=== PATIENT | female | born 2005 | race American Indian/Alaskan Native ===

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

== ENCOUNTER 2024-04-05 21:48 | Emergency (ER) | payer OTHER, SELFPAY ==
[2024-04-05 21:50] VITALS: BP 126/78; PULSE 101; RESP 16; TEMP 36.9; O2SAT 99; BMI 20.5
--- NOTE | 2024-04-05 22:02 | DI.RAD.S_ITS ---
PROCEDURE: XR KNEE LT 1TO2V INDICATIONS: L knee pain after fall TECHNIQUE: 3 views of the knee were acquired. COMPARISON: None. FINDINGS: Bones: Mild cortical irregularity is seen projecting over the central eminence of the proximal tibia. Soft tissues: Moderate lipohemarthrosis. IMPRESSION: 1. Suspected minimally displaced fracture of the central tibial plateau likely involving the anterior cruciate ligament insertion. 2. Moderate lipohemarthrosis. Approved by: Jordan Zheng M.D. on 04/05/2024 at 22:29
[2024-04-05 22:04] VITALS: PULSE 100
--- NOTE | 2024-04-05 22:14 | ED_ITS ---
HPI - Extremity Injury (Lower) General Chief Complaint: Extremity Injury, Lower Stated Complaint: left knee injury Time Seen by Provider: 04/05/24 21:52 Source: patient Mode of arrival: Family Vehicle History of Present Illness HPI Narrative: Patient was otherwise healthy 18-year-old female here for evaluation of a left knee injury. Patient states that while she was playing basketball she fell and landed on her left knee. States she felt a ?crack? has been unable to put weight on it since then. No other injuries from the event. Has not taken anything for the symptoms prior to arrival. No prior injuries. Related Data Home Medications Medication Instructions Recorded Confirmed etonogestrel 68 mg subdermal subdermal 06/12/23 06/12/23 implant (Nexplanon) Previous Rx's Medication Instructions Recorded tramadol 50 mg tablet 50 mg PO Q8H PRN pain #10 tabs 04/05/24 Allergies Allergy/AdvReac Type Severity Reaction Status Date / Time Penicillins AdvReac Intermediate Hives Verified 07/10/23 10:06 Review of Systems Musculoskeletal Musculoskeletal: Reports system reviewed and no additional complaints, except as documented Integumentary/Breasts Skin/Breast: Reports system reviewed and no additional complaints, except as documented Patient History Social History Smoking Status: Never smoker Smoking Status: Never smoker alcohol intake frequency: holidays/special occasions only Substance Use Type: does not use Exam Initial Vital Signs Initial Vital Signs: Vital Signs Temperature 98.4 F 04/05/24 21:50 Pulse Rate 101 H 04/05/24 21:50 Respiratory Rate 16 04/05/24 21:50 Blood Pressure 126/78 04/05/24 21:50 Pulse Oximetry 99 04/05/24 21:50 Oxygen Delivery Method Room Air 04/05/24 21:50 Skin General: no rashes or lesions noted Neuro Sensory Exam: no sensory deficits noted Extrem Other: Patient was able to do a straight leg raise. Hamstrings appear to be intact. Quadriceps tendon and patellar tendon appear to be intact. Patient has discomfort with any type of flexion extension. Course Orders Ordered: ED Orders 04/05/24 22:02 XR knee LT 1to2V Stat 04/05/24 22:37 CT LE LT wo con Stat 04/05/24 22:46 Consult to Orthopedic Surgery Stat Discontinued Medications Hydrocodone Bitart/Acetaminophen (Hydrocodone/Acet 5/325 Tablet) 1 tab PO NOW ONE Stop: 04/05/24 22:17 Last Admin: 04/05/24 22:21 Dose: 1 tab Documented By: NAY Tramadol HCl (Tramadol 50 Mg Prepack) 1 bottle MISC DIRECTED ONE Stop: 04/05/24 23:00 Vital Signs Vital signs: Vital Signs - 8 hr 04/05/24 21:50 04/05/24 22:04 Temperature 98.4 F Pulse Rate 101 H Pulse Rate [Left Dorsalis Pedis] 100 H Respiratory Rate 16 Blood Pressure 126/78 Pulse Oximetry 99 Oxygen Delivery Method Room Air MDM - Extremity Injury (Lower) Imaging Data Extremity x-ray #1: Radiologist's Impression: PROCEDURE: XR KNEE LT 1TO2V INDICATIONS: L knee pain after fall TECHNIQUE: 3 views of the knee were acquired. COMPARISON: None. FINDINGS: Bones: Mild cortical irregularity is seen projecting over the central eminence of the proximal tibia. Soft tissues: Moderate lipohemarthrosis. IMPRESSION: 1. Suspected minimally displaced fracture of the central tibial plateau likely involving the anterior cruciate ligament insertion. 2. Moderate lipohemarthrosis. CT LE: Radiologist's Impression: PROCEDURE: CT LE LT W CON INDICATIONS: Eval for tibial spine versus tibial plateau fracture TECHNIQUE: Noncontrast 1-1.5 mm axial sections acquired from the mid-patella to the proximal tibia, with coronal and sagittal reformats. For radiation dose reduction, the followi ng was used: automated exposure control, adjustment of mA and/or kV according to patient size. COMPARISON: [facility], [place], XR KNEE LT 1TO2V, 04/05/2024, 22:01. FINDINGS: Image quality: Excellent. Bones: Mildly displaced and comminuted avulsion type fracture of the central eminence of the proximal tibia involving the anterior cruciate ligament insertion. The fracture may involve the lateral most portion of the medial tibial plateau articular surface, although the articular surfaces are otherwise spared. The remaining visualized osseous structures are intact. Soft tissues: Moderate to large lipohemarthrosis. The articular cartilages, ligaments, tendons, and menisci are not well evaluated with CT. No significant medial popliteal cyst. The visualized musculature is normal in bulk. IMPRESSION: Comminuted, mildly displaced fracture of the central eminence of the tibia involving the anterior cruciate ligament insertion. Moderate to large lipohemarthrosis. MDM Narrative Medical decision making narrative: X-ray was concerning for tibial plateau/tibial spine fracture/ACL injury. Discussed the case with Dr. Amin on-call for Orthopedic surgery who recommended CT scan, knee immobilizer, crutches and follow up with Orthopedic surgery. Subsequent CT scan does show what appears to be a tibial spine fracture. I discussed this with the patient and parents were at bedside. We discussed crutches and follow up with Orthopedic surgery. Pain medication provided. They were given return precautions. They expressed understanding agreement. Discharge Plan Departure Patient Disposition: Home Clinical Impression: Closed fracture of tibial spine Instructions: How to Use Crutches, How to Use a Knee Immobilizer Activity Restrictions/Additional Instructions: You should be nonweightbearing on your left leg. Use the crutches in the knee immobilizer. Contact the orthopedic providers at the number provided below for a follow-up this week. Return to the emergency department for new symptoms. Prescriptions: New tramadol 50 mg tablet 50 mg PO Q8H PRN (Reason: pain) Qty: 10 0RF No Action Nexplanon 68 mg implant subdermal Referrals: Manan Rubio PA-C [Primary Care Provider] - Charlie Amin MD [Physician] - Stand Alone Forms: Patient Portal/API, Work Release Note
[2024-04-05] MEDS: HYDROCODONE/ACET 5/325 TABLET 1 TAB PO (22:21)
--- NOTE | 2024-04-05 22:37 | DI.CT.S_ITS ---
PROCEDURE: CT LE LT W CON INDICATIONS: Eval for tibial spine versus tibial plateau fracture TECHNIQUE: Noncontrast 1-1.5 mm axial sections acquired from the mid-patella to the proximal tibia, with coronal and sagittal reformats. For radiation dose reduction, the following was used: automated exposure control, adjustment of mA and/or kV according to patient size. COMPARISON: [facility], [place], XR KNEE LT 1TO2V, 04/05/2024, 22:01. FINDINGS: Image quality: Excellent. Bones: Mildly displaced and comminuted avulsion type fracture of the central eminence of the proximal tibia involving the anterior cruciate ligament insertion. The fracture may involve the lateral most portion of the medial tibial plateau articular surface, although the articular surfaces are otherwise spared. The remaining visualized osseous structures are intact. Soft tissues: Moderate to large lipohemarthrosis. The articular cartilages, ligaments, tendons, and menisci are not well evaluated with CT. No significant medial popliteal cyst. The visualized musculature is normal in bulk. IMPRESSION: Comminuted, mildly displaced fracture of the central eminence of the tibia involving the anterior cruciate ligament insertion. Moderate to large lipohemarthrosis. Approved by: Jordan Zheng M.D. on 04/05/2024 at 23:08
[2024-04-05] MEDS: TRAMADOL 50 MG PREPACK 1 BOTTLE MISC (23:28)
== END 2024-04-05 23:45 | disposition home or self-care (01) ==
PROVIDERS: Emergency Provider Emergency Medicine; PCP Physician Assistant
DX: S82.142A Displaced bicondylar fracture of left tibia, initial encounter for closed fracture (principal); W18.30XA Fall on same level, unspecified, initial encounter; Y93.67 Activity, basketball
CPT/HCPCS: 73560; 73700; 99284

== ENCOUNTER → 2024-04-07 17:14 | Outpatient (CLI) | payer OTHER, SELFPAY ==
--- NOTE | 2024-04-07 17:16 | DI.MRI.S_ITS ---
PROCEDURE: MR KNEE LT WO CON INDICATIONS: RUPTURE OF ANTERIOR CRUCIATE LIGAMENT LT KNEE TECHNIQUE: Noncontrast sagittal PD fast spin echo and T2 fast spin echo with fat saturation, sagittal 3-D FLASH with fat saturation; coronal T1 spin echo and PD fast spin echo with fat saturation, and axial PD fast spin echo with fat saturation through the knee. COMPARISON: [facility], CT, CT LE LT WO CON, 04/05/2024, 22:51. FINDINGS: Image quality: Excellent. Menisci: The medial and lateral menisci demonstrate normal morphology and internal signal. The meniscal root ligaments appear intact. Cruciate ligaments: The anterior cruciate ligament appears thickened near its distal insertion. No ACL rupture. The PCL is intact. Medial structures: The medial collateral ligament appears mildly thickened with surrounding soft tissue edema. Visualized portions of the pes anserinus tendons appear normal. No abnormal bursal fluid. Lateral structures: The lateral collateral ligament, long and short heads of the biceps femoris tendon appear intact. The popliteus tendon appears normal. Iliotibial band appears normal. Anterior structures: The quadriceps and patellar tendons appear intact. Patellar alignment is normal. No femoral trochlear dysplasia or ventral trochlear prominence. No edema in the infrapatellar fat pad. Bones and cartilage: Acute comminuted avulsion injury involving base of tibial spine at ACL insertion is seen with slight superior displacement of the fractured fragment and extensive surrounding edema. Marrow edema is also noted involving lateral femoral condyle weight-bearing portion without definite fracture line. Mild marrow edema involving posterior aspect of proximal tibia extending to lateral aspect of posterior tibial plateau without discrete fracture line. The cartilage of the medial and lateral femorotibial compartments, as well as the patellofemoral compartment, appears normal in thickness. Joint space: There is large knee joint fluid. No Enciso's cyst. Normal appearing synovial plicae are incidentally noted. IMPRESSION: 1. Acute comminuted avulsion injury involving base of tibial spine at ACL insertion with surrounding marrow edema. Bony contusion involving lateral femoral condyle weight-bearing portion and posterior and lateral aspect of proximal tibia. No other fracture or dislocation. Articulating cartilage is intact. 2. Moderate to large joint effusion, no loose bodies. 3. Sprain/low-grade partial-thickness tear involving distal ACL at its anterior tibial insertion without ACL rupture. The PCL is intact. 4. Low-grade MCL sprain. 5. No evidence of focal meniscal tear. Dictated by: Kuldeep Lea M.D. on 04/08/2024 at 13:33 Approved by: Kuldeep Lea M.D. on 04/08/2024 at 13:37
== END ==
LOC: MRI 17:15
PROVIDERS: PCP Physician Assistant; Referring Provider Orthopaedic Surgery; Visit Provider Orthopaedic Surgery
DX: S83.512A Sprain of anterior cruciate ligament of left knee, initial encounter (principal); S83.412A Sprain of medial collateral ligament of left knee, initial encounter; S80.02XA Contusion of left knee, initial encounter; M25.462 Effusion, left knee
CPT/HCPCS: 73721

== ENCOUNTER 2024-08-04 17:45 | Emergency (ER) | payer OTHER, SELFPAY ==
[2024-08-04 17:50] VITALS: BP 103/57; PULSE 75; RESP 18; TEMP 36.9; O2SAT 98; BMI 20.5
[2024-08-04 19:04] LABS: Add Manual Diff / Slide Review NO; Basophils Absolute Auto 0 /uL (0-100); Basophils Percent Auto 0.5 % (0-2); Eosinophils Absolute Auto 100 /uL (0-450); Eosinophils Percent Auto 0.9 % (2-4); Hematocrit 41.3 % (36-46); Hemoglobin 13.8 g/dL (12.0-16.0); Lymphocytes Absolute Auto 1900 /uL (1100-4500); Lymphocytes Percent Auto 27.5 % (25-40); Mean Corpuscular HGB Conc 33.5 % (30-36); Mean Corpuscular Volume 92.6 fL (80-100); Monocytes Absolute Auto 300 /uL (0-900); Monocytes Percent Auto 4.7 % (3-14); Neutrophils Absolute Auto 4600 /uL (1500-7000); Neutrophils Percent Auto 66.4 % (50-75); Platelet Count 218 X10^3/uL (150-400); Red Blood Cell Count 4.46 X10^6/uL (4.0-5.2); Red Cell Distribution Width 12.8 % (11.6-14.8)
[2024-08-04 19:17] LABS: Alanine Aminotransferase 16 IU/L (<35); Albumin 5.1 g/dL (3.5-5.0); Albumin Globulin Ratio 1.8 (1.0-2.8); Alkaline Phosphatase 75 U/L (38-126); Aspartate Aminotransferase 29 IU/L (14-36); BUN Creatinine Ratio 10.1 (6-22); Bilirubin Total 0.5 mg/dL (0.2-1.3); Blood Urea Nitrogen 8 mg/dL (7-17); Calcium 9.3 mg/dL (8.4-10.2); Carbon Dioxide 26 mmol/L (22-32); Chloride 105 mmol/L (98-107); Estimated Glomerular Filt Rate > 60 mL/min (>60); Globulin 2.9 g/dL (1.7-4.1); Glucose 124 mg/dL (70-100); HEMOLYSIS 16 (0-50); Lipase 58 U/L (23-300); Potassium 3.7 mmol/L (3.4-5.1); Sodium 140 mmol/L (137-145)
[2024-08-04 23:04] VITALS: BP 111/71; PULSE 72; RESP 19; O2SAT 99
[2024-08-04 23:19] VITALS: BP 106/61; PULSE 88; O2SAT 100
[2024-08-04] MEDS: ONDANSETRON 4 MG/2 ML INJ IV (23:28)
[2024-08-04 23:30] VITALS: BP 99/57; PULSE 71; O2SAT 100
[2024-08-05] VITALS (8 sets, daily range): BP systolic 94–106; BP diastolic 56–69; PULSE 64–94; RESP 18; O2SAT 98–100
--- NOTE | 2024-08-05 00:43 | ED.ABDPAIN ---
HPI - Abdominal Pain General Chief Complaint: Abdominal Pain Stated Complaint: vomiting x30 days, sent by PCP Time Seen by Provider: 08/05/24 00:02 Source: patient Mode of arrival: Ambulatory History of Present Illness HPI narrative: 19-year-old female without history of prior abdominopelvic surgeries, has cutaneous control method, no periods for a number of months, with ongoing 30 days duration abdominal pain, sometimes upper, sometimes lower, not necessarily right-sided or left-sided, not associated with bowel movements, not relieved or worsened with bowel movements, sometimes worsened after foods. Intermittnet nonbloody emesis. Saw a [facility] clinic provider yesterday who did labs and gave Rx ODT-ondansetron, was called back for concern about elevated WBC lab result, advised to go to ED. No established diagnosis. Not seen by any GI specialist. No upper or lower endoscopies. No gynecological problems known. Has hormone implant, last period a few months ago, no recent vaginal bleeding or spotting. No family history of inflammatory bowel problems. No history of constipation problems known. No change in diet. Denies fevers or chills. No diarrhea, change in stool caliber, black or red stools. No dysuria or frequency of urination. No vaginal discharge or pelvic infections known. Related Data Home Medications Medication Instructions Recorded Confirmed etonogestrel 68 mg subdermal subdermal 06/12/23 08/03/24 implant (Nexplanon) Previous Rx's Medication Instructions Recorded ondansetron HCl 4 mg tablet 4 mg PO Q8H PRN nausea and 08/03/24 vomiting #14 tabs Allergies Allergy/AdvReac Type Severity Reaction Status Date / Time Penicillins AdvReac Intermediate Hives Verified 08/03/24 12:08 Patient History Social History Smoking Status: Current every day smoker Smoking Status: Current every day smoker tobacco type: vaping alcohol intake frequency: holidays/special occasions only Exam Narrative Exam Narrative: GENERAL: Well-developed patient, in mild distress. HEAD: Atraumatic. Normocephalic. EYES: Pupils equal round and reactive. Extraocular motions intact. No scleral icterus. No injection or drainage. ENT: Nose without bleeding, purulent drainage. Throat without erythema, tonsillar hypertrophy or exudate. Airway patent. NECK: Trachea midline. Non tender CARDIOVASCULAR: Regular rate and rhythm without murmurs, gallops, or rubs. RESPIRATORY: Clear to auscultation. Breath sounds equal bilaterally. No wheezes, rales, or rhonchi. GASTROINTESTINAL: Abdomen soft, non-tender, nondistended. Some tenderness to right lower quadrant and right middle quadrant, not particularly tender right upper quadrant. No tenderness periumbilical or epigastrium or left-sided. Normal bowel tones without rushes or tinkles. Leg lift on the right side is not seem to make her pain any worse. EXTREMITIES: No edema or joint tenderness. BACK: Nontender without deformity or crepitance. No flank tenderness. NEURO: AOx3. Motor functions grossly nonfocal SKIN: No rash or erythema of visible areas Initial Vital Signs Initial Vital Signs: Vital Signs Temperature 98.4 F 08/04/24 17:50 Pulse Rate 75 08/04/24 17:50 Respiratory Rate 18 08/04/24 17:50 Blood Pressure 103/57 L 08/04/24 17:50 Pulse Oximetry 98 08/04/24 17:50 Oxygen Delivery Method Room Air 08/04/24 17:50 Course Orders Ordered: Discontinued Medications Sodium Chloride (Normal Saline 0.9%) 1,000 mls @ 1,000 mls/hr IV BOLUS ONE Stop: 08/05/24 02:19 Last Infusion: 08/05/24 02:16 Dose: Infused Documented By: Infusion: 08/05/24 02:06 Dose: 0 mls/hr Documented By: Admin: 08/05/24 01:29 Dose: 1,000 mls/hr Documented By: Ondansetron HCl (Ondansetron 4 Mg/2 Ml Inj) 4 mg IV NOW PRN PRN Reason: Nausea And Vomiting Last Admin: 08/04/24 23:28 Dose: 4 mg Documented By: MATTEO Ondansetron HCl (Ondansetron 4 Mg Odt) 4 mg PO NOW PRN PRN Reason: Nausea And Vomiting Ondansetron HCl (Ondansetron 4 Mg/2 Ml Inj) 4 mg IV NOW ONE Stop: 08/05/24 01:21 Last Admin: 08/05/24 01:29 Dose: 4 mg Documented By: Vital Signs Vital signs: Vital Signs - 8 hr 08/04/24 23:04 08/04/24 23:19 08/04/24 23:19 Pulse Rate 72 88 Respiratory Rate 19 Blood Pressure 111/71 106/61 Pulse Oximetry 99 100 Oxygen Delivery Method Room Air 08/04/24 23:30 08/04/24 23:30 08/05/24 00:00 Pulse Rate 71 Respiratory Rate Blood Pressure 99/57 L 99/56 L Pulse Oximetry 100 Oxygen Delivery Method 08/05/24 00:00 08/05/24 00:30 08/05/24 00:30 Pulse Rate 94 H 69 Respiratory Rate Blood Pressure 97/58 L Pulse Oximetry 99 99 Oxygen Delivery Method 08/05/24 01:00 08/05/24 01:00 08/05/24 01:30 Pulse Rate 71 64 Respiratory Rate Blood Pressure 94/65 Pulse Oximetry 98 98 Oxygen Delivery Method 08/05/24 01:30 08/05/24 02:00 08/05/24 02:00 Pulse Rate 64 Respiratory Rate 18 Blood Pressure 95/69 100/61 Pulse Oximetry 100 Oxygen Delivery Method 08/05/24 02:48 08/05/24 02:48 Pulse Rate 82 Respiratory Rate Blood Pressure 102/59 L Pulse Oximetry 99 Oxygen Delivery Method Room Air MDM - Abdominal Pain Lab Data Attestation: I reviewed the patient's lab results. Lab results narrative: White blood cell count 7000, hemoglobin 13.8, platelets adequate. Basic metabolic panel unremarkable. Liver functions lipase normal. Urine test negative. Urine dip negative. 08/04/24 18:57 08/04/24 18:57 Labs: Lab Results 08/04/24 Range/Units 18:57 WBC 7.0 (4.5-11.0) X10^3/uL RBC 4.46 (4.0-5.2) X10^6/uL Hgb 13.8 (12.0-16.0) g/dL Hct 41.3 (36-46) % MCV 92.6 (80-100) fL MCH 31.0 (26-34) PG MCHC 33.5 (30-36) % RDW 12.8 (11.6-14.8) % Plt Count 218 (150-400) X10^3/uL Neut % (Auto) 66.4 (50-75) % Lymph % (Auto) 27.5 (25-40) % [facility] % (Auto) 4.7 (3-14) % Eos % (Auto) 0.9 L (2-4) % Baso % (Auto) 0.5 (0-2) % Neut # (Auto) 4600 (4161-5414) /uL Lymph # (Auto) 1900 (4378-5779) /uL [facility] # (Auto) 300 (0-900) /uL Eos # (Auto) 100 (0-450) /uL Baso # (Auto) 0 (0-100) /uL Sodium 140 (137-145) mmol/L Potassium 3.7 (3.4-5.1) mmol/L Chloride 105 (98-107) mmol/L Carbon Dioxide 26 (22-32) mmol/L BUN 8 (7-17) mg/dL Creatinine 0.79 (0.52-1.04) mg/dL Estimated GFR > 60 (>60) mL/min BUN/Creatinine Ratio 10.1 (6-22) Glucose 124 H (70-100) mg/dL Calcium 9.3 (8.4-10.2) mg/dL Total Bilirubin 0.5 (0.2-1.3) mg/dL AST 29 (14-36) IU/L ALT 16 (<35) IU/L Alkaline Phosphatase 75 (38-126) U/L Total Protein 8.0 (6.3-8.2) g/dL Albumin 5.1 H (3.5-5.0) g/dL Globulin 2.9 (1.7-4.1) g/dL Albumin/Globulin Ratio 1.8 (1.0-2.8) Lipase 58 (23-300) U/L Point of care testing: Point of Care Testing Test Results Negative Urine Dip Bedside Urine Glucose Negative Bedside Urine Bilirubin - Negative Bedside Urine Ketone - Negative Urine Specific [place] 1.020 Bedside Urine Occult Blood - Negative Bedside Urine pH 6.0 Bedside Urine Protein - Negative Bedside Urine Urobilinogen - Negative Bedside Urine Nitrite - Negative Bedside Urine Leukocytes - Negative Esterase MDM Narrative Medical decision making narrative: 19-year-old female with ongoing abdominal pain for this last 1 month, worse last couple of days, recurrent episodes of nausea or vomiting today, unable to keep anything down, increasing generalized abdominal pain. On exam seems to have right middle quadrant and right lower quadrant area discomfort on palpation. No guarding or rebound tenderness. Afebrile, sirs screen negative. Screening labs unremarkable, no white blood cell count elevation, test negative, urine dip negative. Given tenderness right-sided would consider imaging, CT abdomen and pelvis ordered. Father and patient agreeable. Keep NPO for now. She declines pain medications for now. DDx right sided tenderness one month consider constipation, delivery architect etiology, gallbladder, PUD, hepatitis, ureteral colic, right renal pathology, colitis, diverticulitis, bowel obstruction, musculosketelal, other. CT abdomen and pelvis with IV contrast. Impressions: ?No evidence of colitis, diverticulitis, bowel obstruction, obstructive uropathy or acute appendicitis. Large volume of stool within the colon compatible with constipation. Prominent uterine vessels which can be seen in the setting of pelvic congestion syndrome.? See radiology report Copy of report shared with family, trial of [id number] MiraLax. Consider follow up with Gynecology to address possible pelvic congestion syndrome, though suspect given one month duration and CT findings and lack of fever or leukocytosis that constipation is likely cause of her symptoms. Home with father. Return precautions discussed. Discharge Plan Departure Patient Disposition: Home Clinical Impression: Abdominal pain, Constipation Activity Restrictions/Additional Instructions: Ms Norman, Intermittent abdominal pain for this month, seen at local clinic with labs that were sent, increased white blood cell count reported, here for further evaluation. Screening labs here were reassuring, test negative, white blood cell count not elevated here. However there did seem to be some tenderness on the right lower and mid quadrant abdominal exam. We did pursue advanced imaging of the abdomen. CT scan abdomen and pelvis was performed, no acute changes were noted, however there was significant colonic (large intestine) stool noted without bowel obstruction changes. There was also some increased flow to the pelvic organs and radiology concerned that there could be some pelvic congestion syndrome. The migratory in persisting nature of your abdominal pain is consistent with constipation if that is the only process going on for now. Unclear if pelvic congestion syndrome would fit in with your current symptoms though you can discuss this with your regular provider in follow up. Trial of [id number] laxative advised, like MiraLax or magnesium citrate, non prescription. This will likely give you loose stools but if you can stay well hydrated and keep treating hopefully you can debulk the constipation and relieve your discomfort, if it is due to hard stool constipation changes. Consider recheck in the next 2-3 days with your regular doctor after trial of liquid laxative medication. Return earlier to this/nearest emergency department for any change worsening symptoms or any concerns prior. Thank you for allowing our team to evaluate you today. Prescriptions: No Action Nexplanon 68 mg implant subdermal ondansetron HCl 4 mg tablet 4 mg PO Q8H PRN (Reason: nausea and vomiting) Qty: 14 0RF Referrals: Miscellaneous,Doctor, MD [Primary Care Provider] - Stand Alone Forms: Patient Portal/API/Survey
--- NOTE | 2024-08-05 01:15 | DI.CT.S_ITS ---
PROCEDURE: CT ABDOMEN PELVIS W CON INDICATIONS: abd pain x30d, worse x2, RLQ/RMQ tend TECHNIQUE: After the administration of intravenous contrast, axial sections acquired from the lung bases to the pubic symphysis. Coronal and sagittal reformats were performed. For radiation dose reduction, the following was used: automated exposure control, adjustment of mA and/or kV according to patient size. COMPARISON: None. FINDINGS: Image quality: Diagnostic. Lower Chest: No significant findings. ABDOMEN: Liver: No solid mass. Gallbladder: No radiopaque gallstones or wall thickening. Biliary ducts: No biliary dilation. Pancreas: No ductal dilation. Spleen: Size is within normal limits. Adrenal Glands: No adrenal nodules. Kidneys and Ureters: No hydronephrosis. No solid mass. No complex renal cystic lesion which requires follow up. Stomach and Bowel: Normal colonic caliber, without significant wall thickening. Moderate to large stool burden. Normal appendix. Peritoneum: Trace free pelvic fluid is likely physiologic. No free air. Ventral Wall: No significant ventral hernia. Abdominal Nodes: No retroperitoneal or mesenteric adenopathy by size criteria. Vessels: Aorta and inferior vena cava are normal in size. PELVIS: Pelvic Organs: Mild prominence of the pelvic vasculature.. Bladder: No bladder wall thickening, accounting for underdistention. Pelvic Nodes: No enlarged lymph nodes. Miscellaneous: No inguinal hernias are seen. Bones: No aggressive osseous abnormality. IMPRESSION: 1. No acute findings within the abdomen or pelvis to explain patient's symptoms. 2. Moderate to large stool burden, correlate for constipation. 3. Mildly prominent adnexal vessels are nonspecific, correlate for signs of pelvic congestion syndrome. Findings are concordant with preliminary interpretation provided by [facility]. Dictated by: Miguel Sloan M.D. on 08/05/2024 at 9:09 Approved by: Miguel Sloan M.D. on 08/05/2024 at 9:18
[2024-08-05] MEDS: SODIUM CHLORIDE 0.9% 1,000 ML 1000 ML IV (01:29)
[2024-08-05] MEDS: ONDANSETRON 4 MG/2 ML INJ IV (01:29)
== END 2024-08-05 03:20 | disposition home or self-care (01) ==
PROVIDERS: Emergency Medicine; Emergency Provider Emergency Medicine
DX: R10.9 Unspecified abdominal pain (principal); K59.00 Constipation, unspecified; R11.10 Vomiting, unspecified; F17.210 Nicotine dependence, cigarettes, uncomplicated
CPT/HCPCS: 36415; 74177; 80053; 81003; 81025; 83690; 85025; 96361; 96374; 96375; 99284; J2405; Q9967